=== PATIENT | female | born 1975 | race Caucasian/White ===

== ENCOUNTER 2017-04-16 20:59 | Emergency (ER) | payer BC ==
[~2017-04-16] VITALS: Ht 154.9 cm; Wt 66.6 kg
[2017-04-16 21:03] VITALS: TEMP 36.9; Ht 154.9 cm; Wt 66.6 kg
[2017-04-16] MEDS ORDERED: SODIUM CHLORIDE 0.9% 1000ML 1,000 ML IV STA (21:59)
[2017-04-16 22:15] LABS: BASO % 0.4 %; BASO ABS # 0.03 K/uL (0-0.2); EOS % 1.8 %; EOS ABS # 0.14 K/uL (0-0.5); HEMATOCRIT 38.8 % (37-47); HEMOGLOBIN 13.7 g/dL (12.0-16.0); IG# 0.01 K/uL (0.00-0.02); LYMPH % 36.6 %; LYMPH ABS # 2.79 K/uL (1.2-3.4); MEAN CORPUSCULAR HEMOGLOBIN 31.4 pg (25-34); MEAN CORPUSCULAR HGB CONC 35.3 g/dl (32-36); MEAN PLATELET VOLUME 9.7 fL (7.4-10.4); MONO % 7.5 %; MONO ABS # 0.57 K/uL (0.11-0.59); NEUT % 53.6 %; NEUT ABS # 4.08 K/uL (1.4-6.5); PLATELET COUNT 340 K/uL (130-400); RED CELL DISTRIBUTION WIDTH CV 12.5 % (11.5-14.5); RED CELL DISTRIBUTION WIDTH SD 40.1 fL (36.4-46.3); WHITE BLOOD COUNT 7.62 K/uL (4.8-10.8)
[2017-04-16] MEDS ORDERED: LEVO1TAB33 PO (22:16)
[2017-04-16] MEDS ORDERED: FAMO20TA11 PO (22:16)
[2017-04-16] MEDS ORDERED: BUPR-79 PO (22:16)
[2017-04-16] MEDS ORDERED: ATV/1 PO (22:16)
--- NOTE | 2017-04-16 22:25 | DIAGNOSTIC IMAGING REPORT ---
CHEST ONE VIEW PORTABLE CLINICAL HISTORY: Chest pain. COMPARISON STUDY: No previous studies for comparison. FINDINGS: Lung volumes are normal. Lungs are clear. There is no pneumothorax or pleural effusion. Pulmonary vascularity is normal. Cardiomediastinal silhouette is normal. IMPRESSION: No acute cardiopulmonary findings. Electronically signed by: Golden García M.D. 04/16/2017 10:23 PM Dictated Date/Time: 04/16/2017 10:23 PM
[2017-04-16 22:27] LABS: ALBUMIN 4.1 gm/dl (3.4-5.0); ALT/SGPT 20 U/L (12-78); BLOOD UREA NITROGEN 8 mg/dl (7-18); CALCIUM 10.2 mg/dl (8.5-10.1); CARBON DIOXIDE 23 mmol/L (21-32); CREATININE 0.89 mg/dl (0.60-1.20); GLUCOSE 105 mg/dl (70-99); POTASSIUM 3.2 mmol/L (3.5-5.1); SODIUM 138 mmol/L (136-145)
[2017-04-16 22:37] LABS: ALKALINE PHOSPHATASE 61 U/L (45-117); AST/SGOT 14 U/L (15-37); TOTAL PROTEIN 7.7 gm/dl (6.4-8.2)
[2017-04-16] MEDS ORDERED: ACETAMINOPHEN IV 1,000 MG in EMPTY BAG 0 ML IV STA (22:40)
[2017-04-16] MEDS ORDERED: KETOROLAC TROMETHAMINE 30 MG/ML VIAL IV STA (22:40)
[2017-04-16] MEDS ORDERED: ACETAMINOPHEN 1000 MG/100 ML IV IV ONE (22:47)
[2017-04-16 23:10] LABS: INFLUENZA B ANTIGEN Neg for Influ B (NEG)
--- NOTE | 2017-04-17 01:05 | EMERGENCY ROOM VISIT NOTE ---
History Report prepared by Lia: Zaria White Under the Supervision of: Dr. Blanca Davis D.O. First contact with patient: 21:22 Chief Complaint: CHEST PAIN Stated Complaint: CHEST PAIN,NECK Nursing Triage Summary: pt reports chest pain, jaw pain, neck pain and left arm pain since 1699. pt currently on abx for pneumonia. History of Present Illness The patient is a 41 year old female who presents to the Emergency Room with complaints of worsening chest pain starting an hour ago. The patient states that the pain feels like a tightness in her chest. She reports that the pain goes up her neck, into her jaw, under her armpit, and down her left arm. She notes that she tried taking a Pepcid with no relief. The patient complains of shortness of breath, nausea, fatigue, tingling in her legs when she showers or takes her pants off, and feeling anxious. The patient states that sometimes she feels like her heart is fluttering and she becomes weak when this happens. She reports that this started on the march. She reports that she has been to the ED twice for it and was diagnosed with pneumonia. She states that they put her on Levaquin. The patient denies spasms, cramping, being more painful with a deep breath, dizziness, lightheadedness, and loss of consciousness. The patient notes a history of anxiety that she takes two Ativan a night for. Source of History: patient Onset: an hour ago Position: chest Quality: other (tightness) Timing: worsening Associated Symptoms: + neck pain, + SOB, + nausea, + fatigue, + weakness, No LOC Note: The patient complains of the pain radiating into her armpit, jaw, and left arm. The patient complains of tingling in her legs and feeling anxious. The patient denies spasms, cramping, being more painful with a deep breath, dizziness, and lightheadedness. Review of Systems See HPI for pertinent positives & negatives. A total of 10 systems reviewed and were otherwise negative. Past Medical & Surgical Medical Problems: (1) Anxiety (2) History of pneumonia Family History Heart disease Social History Marital Status: single Housing Status: lives alone Occupation Status: employed Current/Historical Medications Scheduled Bupropion (Wellbutrin Sr), 150 MG PO DAILY Famotidine (Pepcid), 1 TAB PO BID Levofloxacin (Levaquin), 500 MG PO DAILY Lorazepam (Ativan), 2 MG PO HS Allergies Coded Allergies: Erythromycin (Verified Allergy, Severe, SOB, CHEST PAIN, VOMITING, 04/16/17 ) Penicillins (Verified Allergy, Severe, SOB, CHEST PAIN, VOMITING, 04/16/17) Physical Exam Vital Signs Date Time Temp Pulse Resp B/P (MAP) Pulse Ox O2 Delivery O2 Flow Rate FiO2 04/17/17 01:15 76 18 114/72 99 04/17/17 01:12 69 04/17/17 00:13 67 18 103/72 99 Room Air 04/16/17 23:17 82 18 120/79 99 Room Air 04/16/17 22:12 93 18 137/85 99 Room Air 04/16/17 21:24 86 04/16/17 21:03 36.9 95 20 146/90 99 Room Air Physical Exam GENERAL: alert, very anxious appearing, well nourished, no distress, non-toxic EYE EXAM: normal conjunctiva, PERRL and EOM's grossly intact OROPHARYNX: no exudate, no erythema, lips, buccal mucosa, and tongue normal and mucous membranes are dry NECK: supple, no nuchal rigidity, no adenopathy, non-tender LUNGS: Clear to auscultation. Normal chest wall mechanics HEART: no murmurs, S1 normal and S2 normal CHEST: slight reproducible chest pain on the left ABDOMEN: abdomen soft, non-tender, normo-active bowel sounds, no masses, no rebound or guarding. BACK: Back is symmetrical on inspection and there is no deformity, no midline tenderness, no CVA tenderness. SKIN: no rashes and no bruising UPPER EXTREMITIES: upper extremities are grossly normal. LOWER EXTREMITIES: No pitting edema. NEURO EXAM: Normal sensorium, cranial nerves II-XII grossly intact, normal speech, no gross weakness of arms, no gross weakness of legs. Medical Decision & Procedures ER Provider Diagnostic Interpretation: Radiology results have been interpreted by the radiologist and reviewed by me. CHEST ONE VIEW PORTABLE CLINICAL HISTORY: Chest pain. COMPARISON STUDY: No previous studies for comparison. FINDINGS: Lung volumes are normal. Lungs are clear. There is no pneumothorax or pleural effusion. Pulmonary vascularity is normal. Cardiomediastinal silhouette is normal. IMPRESSION: No acute cardiopulmonary findings. Electronically signed by: Golden García M.D. 04/16/2017 10:23 PM Dictated Date/Time: 04/16/2017 10:23 PM Laboratory Results 04/16/17 21:15 Red Blood Count 4.36, Mean Corpuscular Volume 89.0, Mean Corpuscular Hemoglobin 31.4, Mean Corpuscular Hemoglobin Concent 35.3, Mean Platelet Volume 9.7, Neutrophils (%) (Auto) 53.6, Lymphocytes (%) (Auto) 36.6, Monocytes (%) (Auto) 7.5, Eosinophils (%) (Auto) 1.8, Basophils (%) (Auto) 0.4, Neutrophils # (Auto) 4.08, Lymphocytes # (Auto) 2.79, Monocytes # (Auto) 0.57, Eosinophils # (Auto) 0.14, Basophils # (Auto) 0.03 04/16/17 21:15 Test 04/16/17 21:15 04/16/17 22:15 04/17/17 00:10 White Blood Count 7.62 K/uL (4.8-10.8) Red Blood Count 4.36 M/uL (4.2-5.4) Hemoglobin 13.7 g/dL (12.0-16.0) Hematocrit 38.8 % (37-47) Mean Corpuscular Volume 89.0 fL (80-100) Mean Corpuscular Hemoglobin 31.4 pg (25-34) Mean Corpuscular Hemoglobin Concent 35.3 g/dl (32-36) Platelet Count 340 K/uL (130-400) Mean Platelet Volume 9.7 fL (7.4-10.4) Neutrophils (%) (Auto) 53.6 % Lymphocytes (%) (Auto) 36.6 % Monocytes (%) (Auto) 7.5 % Eosinophils (%) (Auto) 1.8 % Basophils (%) (Auto) 0.4 % Neutrophils # (Auto) 4.08 K/uL (1.4-6.5) Lymphocytes # (Auto) 2.79 K/uL (1.2-3.4) Monocytes # (Auto) 0.57 K/uL (0.11-0.59) Eosinophils # (Auto) 0.14 K/uL (0-0.5) Basophils # (Auto) 0.03 K/uL (0-0.2) RDW Standard Deviation 40.1 fL (36.4-46.3) RDW Coefficient of Variation 12.5 % (11.5-14.5) Immature Granulocyte % (Auto) 0.1 % Immature Granulocyte # (Auto) 0.01 K/uL (0.00-0.02) Prothrombin Time 10.4 SECONDS (9.0-12.0) Prothromb Time International Ratio 1.0 (0.9-1.1) Anion Gap 10.0 mmol/L (3-11) Est Creatinine Clear Calc Drug Dose 74.1 ml/min Estimated GFR () 94.6 Estimated GFR (Non- 81.6 BUN/Creatinine Ratio 8.4 (10-20) Calcium Level 10.2 mg/dl (8.5-10.1) Magnesium Level 2.1 mg/dl (1.8-2.4) Total Bilirubin 0.4 mg/dl (0.2-1) Aspartate Amino Transf (AST/SGOT) 14 U/L (15-37) Alanine Aminotransferase (ALT/SGPT) 20 U/L (12-78) Alkaline Phosphatase 61 U/L (45-117) Total Protein 7.7 gm/dl (6.4-8.2) Albumin 4.1 gm/dl (3.4-5.0) Globulin 3.6 gm/dl (2.5-4.0) Albumin/Globulin Ratio 1.1 (0.9-2) Thyroid Stimulating Hormone (TSH) 4.480 uIu/ml (0.300-4.500) Monoscreen NEG (NEG) Influenza Type A Antigen Neg for Influ A (NEG) Influenza Type B Antigen Neg for Influ B (NEG) Troponin I < 0.015 ng/ml (0-0.045) Laboratory results per my review. Medications Administered Medications (Trade) Dose Ordered Sig/Ranjeet Route Start Time Stop Time Status Last Admin Dose Admin Sodium Chloride 1,000 ml @ 999 mls/hr Q1H1M STAT IV 04/16/17 21:59 04/16/17 22:59 DC 04/16/17 22:14 999 MLS/HR Ketorolac Tromethamine (Toradol Inj) 30 mg NOW STAT IV 04/16/17 22:40 04/16/17 22:42 DC 04/16/17 22:54 30 MG Acetaminophen (Ofirmev Iv) 1,000 mg STK-MED ONCE IV 04/16/17 22:47 04/16/17 22:48 DC 04/16/17 22:54 1,000 MG ECG Indication: chest pain Rate (beats per minute): 80 Rhythm: sinus rhythm Findings: nonspecific-ST abn (possibly due to poor tracing of quality), other ( baseline artifact, normal axis, normal intervals) Comparison ECG Date: REPEAT Change: Sinus rhythm. Rate of 71. Normal axis. Normal intervals. No ectopy. No acute ischemia. ED Course 2145: The patient was evaluated in room A9B. A complete history and physical exam was performed. 2158: Ordered NSS 1000 ml @ 999 mls/hr IV. 2239: Ordered Toradol Inj 30mg IV, Acetaminophen 1000 mg/ Empty Bag 100 ml @ 400 mls/hr IV. 7: Ordered Ofirmev Iv 1000 mg IV. 2248: I interpreted the patient's EKG at this time. 2330: I interpreted the patient's repeat EKG at this time. 2333: Upon reevaluation, the patient is feeling better. I discussed the findings and the treatment plan with the patient. She verbalizes agreement and understanding. The patient was discharged home. Medical Decision The patient is a 41 year old female who presents to the Emergency Room with complaints of worsening chest pain starting an hour ago. Differential diagnosis: Etiologies such as cardiac ischemia, aortic dissection, pulmonary embolism, pneumonia, pneumothorax, musculoskeletal, infections, pericarditis, myocarditis , esophageal rupture, gastrointestinal, as well as others were entertained. Medication Reconcilliation Current Medication List: was personally reviewed by me Blood Pressure Screening Patient's blood pressure: Normal blood pressure Blood pressure disposition: Did not require urgent referral Impression Primary Impression: Left sided chest pain Additional Impression: Anxiety Scribe Attestation The scribe's documentation has been prepared under my direction and personally reviewed by me in its entirety. I confirm that the note above accurately reflects all work, treatment, procedures, and medical decision making performed by me. Departure Information Dispostion Home / Self-Care Referrals Armin Moore D.O. (PCP) Forms Call Back Authorization, HOME CARE DOCUMENTATION FORM, IMPORTANT VISIT INFORMATION Patient Instructions My [facility] Additional Instructions Please finish your course of antibiotics. Please follow up with your family doctor and discuss with them your anxiety medication. Please drink plenty of fluids to stay well-hydrated. You may use Tylenol and ibuprofen as needed for pain. If you have any worsening pain, develop trouble breathing, fevers, vomiting, noticed black or bloody stools, you've any other new concerns, please return the emergency room. Problem Qualifiers
[2017-04-17 01:15] VITALS: BP 114/72; PULSE 76; O2SAT 99
== END 2017-04-17 01:16 | disposition home or self-care (01) ==
LOC: C.EDB 21:03 → C.EDA 04-17 01:16
DX: R07.9 Chest pain, unspecified (principal); F41.9 Anxiety disorder, unspecified; Z87.01 Personal history of pneumonia (recurrent); Z79.2 Long term (current) use of antibiotics; Z79.899 Other long term (current) drug therapy